=== PATIENT | female | born 1955 | race Caucasian/White ===

== ENCOUNTER → 2018-02-14 | Outpatient (CLI) | payer OTHER ==
[~2018-02-14] MED LIST: ADULT LOW DOSE81 MG PO; CELEXA40 MG PO; CHANTIX1 MG OR; CRESTOR5 MG PO; IBUPROFEN 800800 MG PO; LEXAPRO20 MG; LIPITOR10 MG; LISINOPRIL-HCT1 EAC1 PO; NIFEREX CAPSULE60 MG; NORCO 5-325 TA1 EACH; NORCO 5-325 TA1 EACH PO; PRILOSEC 10MG C10 M1; TRAMADOL 50 MG50 MG PO; ZOCOR40 MG PO
== END ==
LOC: M.LAB 11:31
DX: M25.512 Pain in left shoulder (principal)

== ENCOUNTER → 2018-12-18 | Outpatient (CLI) | payer OTHER ==
--- NOTE | 2018-12-19 10:50 | CARDNUC ---
[place] [address] CARDIAC NUCLEAR IMAGING REPORT Name: CHRISTINE HARTLEY Room: [facility]#: [id number] Admission: 12/18/18 Attend Phys: Gerald Borrero, Discharge: Date of : 53 Date of Service: 12/19/18 1050 Report #: [id number] THIS REPORT FOR: //name// APPROVED REPORT Imaging Protocol: Rest Tc-99m/Stress Tc-99m 1 day Study performed: 12/18/2018 10:45:00 Indication: Chest pain Patient Location: Out-Patient Stress Tech: Saray Yan Stress Nurse: Ursula Chatman RN Ht: 5 ft 1 in Wt: 109 lbs BSA: 1.46 m2 BMI: 20.59 Medical History Medical History: hyperlipidemia, hypertension Medications: atorvastatin, lisinopril Allergies: penicillin Cardiac Risk Factors: age, hyperlipidemia, hypertension, tobacco Exercise History: Physically active Resting Data Rest SPECT myocardial perfusion imaging was performed in supine position 30 minutes following the intravenous injection of 11.2 mCi of Tc-99m Sestamibi. Time of rest injection: 11:00 The images were gated to evaluate regional wall motion and calculate left ventricular ejection fraction. Administration Route: IV Administration Site: Right Hand Pharmacologic Stress Pharmacologic stress test was performed by injecting Regadenoson 0.4 mg IV push over 10-15 seconds immediately followed by the intravenous injection of 36.0 mCi of Tc-99m Sestamibi. Time of stress injection: 12:35 Administration Route: IV Administration Site: Right Hand Heart Rate at time of stress injection: 89 bpm. Gated Stress SPECT was performed 40 minutes after stress injection. The images were gated to evaluate regional [place] [address] CARDIAC NUCLEAR IMAGING REPORT Name: CHRISTINE HARTLEY Room: [facility]#: [id number] Admission: 12/18/18 Attend Phys: Gerald Borrero, Discharge: Date of : 53 Date of Service: 12/19/18 1050 Report #: [id number] left ventricular ejection fraction. Prone imaging was performed. Stress Test Details Stress Test: Pharmacologic stress testing performed using 0.4 mg of regadenoson per 5 mL given IV over 10 seconds. Reason for pharmacologic stress test: physical limitation. HR Max Heart Rate (APMHR): 156 bpm Resting HR: 60 bpm Target HR (85% APMHR): 132 bpm Max HR Achieved: 89 bpm % of APMHR: 57 Recovery HR: 62 bpm HR response to stress: Normal HR response to stress BP Resting BP: 139/77 mmHg Max BP: 146/72 mmHg Recovery BP: 116/68 mmHg BP response to stress: Normal blood pressure response to stress. ECG Resting ECG: nsr Stress ECG: nsr ST Change: none Arrhythmia: none Recovery ECG: nsr Recovery ST Change: none Recovery Arrhythmia: none Clinical Reason for Termination: Completed protocol Nurse Comments pt attempted a walking emanuel but was unable to walk on treadmill due to sciatica Stress ECG Conclusion negative Study Quality Study: Good Artifact: No artifact Lung Uptake: [place] [address] CARDIAC NUCLEAR IMAGING REPORT Name: CHRISTINE HARTLEY Room: [facility]#: [id number] Admission: 12/18/18 Attend Phys: Gerald Borrero, Discharge: Date of : 53 Date of Service: 12/19/18 1050 Report #: [id number] At rest, the left ventricular ejection fraction was 75%.. Post stress, the left ventricular ejection was 78%.. SSS: 0 SRS: 0 SDS: 0 TID = 1.12. Perfusion Review of rest data reveals normal perfusion, without perfusion defects.Imaging obtained following vasodilator stress demonstrate a similar, uniform uptake of tracer without defects. Prone imaging was normal. LVEDV is normal.No segental wall motion abnormality seen. Images were reviewed using [employer]. Wall Motion normal all segments.No chamber dilation Nuclear Conclusion ECG Findings: negative for ischemia Clinical Findings: negative for ischemia Nuclear Findings: negative for ischemia Exercise Capacity: not assessed Left Ventricular Function: normal Risk Study: low Negative perfusion nuclear stress test for ischemia or infarct <Conclusion> negative <ELECTRONICALLY SIGNED> By: Gerald Borrero MD, FACC 12/19/18 1050 105 1050 Gerald Borrero MD, FACC /INF
== END ==
LOC: M.NUC 11-28 15:00
DX: R07.2 Precordial pain (principal); I10 Essential (primary) hypertension; E78.5 Hyperlipidemia, unspecified; Z87.891 Personal history of nicotine dependence

== ENCOUNTER → 2020-05-17 | Outpatient (CLI) | payer OTHER ==
[~2020-05-17] MED LIST changes: +ASA81BEC PO; +NORCO 5-325 TA1 EAC2 PO
== END ==
LOC: M.LAB 09:58
PROVIDERS: ATTEND Surgery
DX: Z01.812 Encounter for preprocedural laboratory examination (principal); Z20.828 Contact with and (suspected) exposure to other viral communicable diseases; K44.9 Diaphragmatic hernia without obstruction or gangrene

== ENCOUNTER → 2020-05-18 | Outpatient (CLI) | payer OTHER | LOC: M.RAD 04-30 11:07 → M.MRI 05-11 13:00 → M.RAD 05-11 13:00 | PROVIDERS: ATTEND Family Medicine | DX: M25.512 Pain in left shoulder (principal); F32.9 Major depressive disorder, single episode, unspecified; K21.9 Gastro-esophageal reflux disease without esophagitis; E78.5 Hyperlipidemia, unspecified; I10 Essential (primary) hypertension; F17.210 Nicotine dependence, cigarettes, uncomplicated; Z79.82 Long term (current) use of aspirin; Z79.899 Other long term (current) drug therapy; Z98.890 Other specified postprocedural states; Z72.89 Other problems related to lifestyle ==

== ENCOUNTER → 2020-05-19 | Day surgery (SDC) | payer OTHER ==
[2020-05-19 07:51] LABS: HEMATOCRIT 40.3 % (37.0-47.0); HEMOGLOBIN 13.7 gm/dL (12.0-15.0); MCH 30.5 pg (26.0-34.0); MCHC 33.9 g/dL (28.0-37.0); MCV 89.9 fL (80.0-100.0); RBC 4.49 mil/uL (4.20-5.00); WBC 9.7 thou/uL (4.0-11.0)
[2020-05-19 08:01] LABS: CALCIUM 8.7 mg/dL (8.5-10.1); CREATININE 0.9 mg/dL (0.6-1.3); POTASSIUM 3.9 mmol/L (3.5-5.1)
--- NOTE | 2020-05-19 08:26 | EKG ---
[place] [address] ELECTROCARDIOGRAM REPORT Name: CHRISTINE HARTLEY Room: [facility].#: [id number] Admission: 05/19/20 Attend Phys: Nir Polanco Discharge: Date of : 53 Date of Service: 05/19/20743 Report #: [id number] THIS REPORT FOR: //name// [facility] Test Date: 2020-05-19 Test Time: 07:44:02 Pat Name: CHRISTINE HARTLEY Department: Room: Gender: F [employer]: : 1955 Requested By: Nir Sullivan Order Number: [id number] Reading MD: Charanjit Bazzi Measurements Intervals [place] Rate: 63 P: 69 [place]: 149 QRS: 64 QRSD: 78 T: 56 QT: 408 QTc: 418 Interpretive Statements Sinus rhythm No previous ECG available for comparison Electronically Signed On 05-19-2020 8:26:04 CDT by Charanjit Bazzi [email or web address] <ELECTRONICALLY SIGNED> By: Charanjit Bazzi MD, [facility] 05/19/20825 0744 Charanjit Bazzi MD, FACC /EPI
--- NOTE | 2020-05-21 09:50 | OP ---
[facility] [address] [place] [address] OPERATIVE REPORT Name: HARTLEYCHRISTINE CHARLES Room: [facility] M.R.#: [id number] Admission: 05/19/20 Attend Phys: Nir Sullivan Discharge: Date of : 53 Report #: [id number] THIS REPORT FOR: //name// cc: Rustam Chan Vincent R. DO ~ CC: Nir Cahn DATE OF SERVICE: 05/19/2020 PREOPERATIVE DIAGNOSIS: Incarcerated recurrent ventral incisional hernia. POSTOPERATIVE DIAGNOSIS: Incarcerated recurrent ventral incisional hernia. OPERATION: Laparoscopic repair of incarcerated recurrent ventral incisional hernia with mesh. SURGEON: Nir Sullivan MD ANESTHESIA: General. ESTIMATED BLOOD LOSS: Minimal. SPECIMEN: None. DESCRIPTION OF PROCEDURE: After informed consent was obtained, the patient was brought to the operating room and placed supine. SCDs were placed and working, preoperative antibiotics were administered, general anesthesia was induced. The abdomen was prepped and draped in a usual sterile fashion. A 5 mm incision was made in the left upper quadrant. A 5 mm trocar was placed under direct vision. Pneumoperitoneum was established. Left-sided 12 mm port was placed. Two right-sided 5 mm ports were placed. She had incarcerated omentum and liver, and epigastric ventral incisional hernia. The hernia sac was grasped and retracted posteriorly. I was then able to free up the incarcerated contents from the hernia sac. The defect measured approximately 6 x 6 cm. I therefore inserted a 20 x 15 cm Bard Ventralight mesh on an Echo system. It was brought up to the abdominal wall using a suture passer. It covered the defect widely. It was tacked with 25 absorbable tacks. I then placed 2-0 Ethibond sutures on the lateral aspect of the mesh and one on the inferior midline portion of the mesh. This was done using a PMI suture passer. The sutures were tied down. The ports were removed under direct vision. The 12 mm trocar fascia was closed with a [id number] 0 Vicryl. Skin was closed with 4-0 Monocryl. Incisions were sealed with Steri-[place] [address] OPERATIVE REPORT Name: CHRISTINE HARTLEY Room: [facility]#: [id number] Admission: 05/19/20 Attend Phys: Nir Sullivan Discharge: Date of : 53 Report #: [id number] COMPLICATIONS: None. DISPOSITION: The patient was taken to recovery in satisfactory condition. <ELECTRONICALLY SIGNED> By: Nir Sullivan MD 05/21/20 0950 1222 [id number] Sullivan MD /nt
== END | disposition home or self-care (01) ==
LOC: M.SUR 07:13
PROVIDERS: ATTEND Surgery
DX: K43.0 Incisional hernia with obstruction, without gangrene (principal); I10 Essential (primary) hypertension; Z88.0 Allergy status to penicillin; Z79.899 Other long term (current) drug therapy; Z98.890 Other specified postprocedural states

== ENCOUNTER → 2020-07-01 | Outpatient (CLI) | payer OTHER | LOC: M.LAB 14:32 | PROVIDERS: ATTEND Orthopaedic Surgery | DX: Z01.812 Encounter for preprocedural laboratory examination (principal); Z20.828 Contact with and (suspected) exposure to other viral communicable diseases ==

== ENCOUNTER → 2020-07-07 | Outpatient (CLI) | payer OTHER | LOC: M.LAB 05:03 | PROVIDERS: ATTEND Anesthesiology | DX: E87.6 Hypokalemia (principal) ==